=== PATIENT | male | born 1960 | race Caucasian/White ===

== ENCOUNTER 2017-02-18 19:22 | Inpatient (IN) | payer MEDICAID, OTHER ==
[~2017-02-18] VITALS: Ht 177.8 cm; Wt 51.3 kg
[2017-02-18 20:48] LABS: BASO % 0.3 % (0.0-1.0); EOS # 0.1 K/mm3 (0.0-0.50); EOS % 2.2 % (0.0-3.0); LARGE UNSTAINED CELL # 0.1 K/mm3 (0.0-0.4); LYMPH # 1.4 K/mm3 (1.5-4.5); MEAN CORPUSCULAR HEMOGLOBIN 33.8 pg (27.0-33.0); MEAN CORPUSCULAR VOLUME 102.4 fl (80.0-96.0); MONO # 0.4 K/mm3 (0.0-0.8); MONO % 6.5 % (0.0-5.0); NEUTROPHILS # 4.2 K/mm3 (1.8-7.7); PLATELET COUNT, AUTOMATED 128 k/mm3 (150-450); RED CELL DISTRIBUTION WIDTH 14.3 % (11.5-14.5); WHITE BLOOD COUNT 6.1 K/mm3 (4.0-10.0)
[2017-02-18 20:56] LABS: INR 2.04
[2017-02-18 21:14] LABS: ALBUMIN 1.8 GM/DL (3.2-5.2); ALBUMIN/GLOBULIN RATIO 0.38 (1.00-1.93); ALKALINE PHOSPHATASE 128 U/L (45-117); ALT/SGPT 41 U/L (12-78); ANION GAP 7 MEQ/L (8-16); AST/SGOT 137 U/L (15-37); BILIRUBIN,DIRECT 1.7 MG/DL (0.0-0.2); BILIRUBIN,TOTAL 3.2 MG/DL (0.2-1.0); BLOOD UREA NITROGEN 5 MG/DL (7-18); CALCIUM LEVEL 7.6 MG/DL (8.5-10.1); CARBON DIOXIDE LEVEL 36 MEQ/L (21-32); CHLORIDE LEVEL 80 MEQ/L (98-107); CREATININE FOR GFR 0.48 MG/DL (0.70-1.30); GLOMERULAR FILTRATION RATE > 60.0 (>56); GLUCOSE, FASTING 107 MG/DL (70-105); POTASSIUM SERUM 2.8 MEQ/L (3.5-5.1); SODIUM LEVEL 123 MEQ/L (136-145); TOTAL PROTEIN 6.6 GM/DL (6.4-8.2)
[2017-02-18] MEDS ORDERED: ISOVUE-370 76% 100ML VIAL (Q9967) As Ordered ONE (22:15)
[2017-02-18] MEDS ORDERED: KCL 10MEQ IN STERILE WATER 100ML As Ordered ONE (22:28)
[2017-02-18] MEDS ORDERED: POTASSIUM CHLORIDE 10 MEQ SR TABLET PO ONE (22:30)
[2017-02-18] MEDS ORDERED: KCL 10MEQ IN 100ML SWI (KRUN) 10 MEQ in APPROPRIATE DILUENT 1 EA IV ONE ×2 (22:30)
[2017-02-18] MEDS ORDERED: PHYTONADIONE INJection 10 MG in NS 50 ML IV ONE (23:00)
[2017-02-18] MEDS ORDERED: METOCLOPRAMIDE INJ 10MG/2ML VIAL (J2765) IV PRN (23:00)
[2017-02-18] MEDS ORDERED: VITMTA PO (23:10)
[2017-02-18] MEDS ORDERED: OMEP20CA3 PO (23:10)
[2017-02-18] MEDS ORDERED: VITATAB11 PO (23:10)
[2017-02-18] MEDS ORDERED: MAGN500T5 PO (23:10)
[2017-02-18] MEDS ORDERED: CALC600T10 PO (23:10)
[2017-02-18] MEDS ORDERED: FAMO1TAB11 PO (23:10)
[2017-02-18] MEDS: THIAMINE 100 MG TAB PO SCH (23:50)
[2017-02-19] VITALS (8 sets, daily range): BP systolic 92–126; BP diastolic 58–76
--- NOTE | 2017-02-19 01:00 | REPUSA ---
CLINICAL HISTORY: Abdominal pain. TECHNIQUE: Multiple axial, sagittal and coronal CT images were obtained through the abdomen and pelvi s after administration of oral and intravenous contrast material. COMMENTS: The liver is cirrhotic. Multiple hypodense hepatic lesions with the largest measuring 2.6 cm on the r ight side. There is no intra or extrahepatic biliary ductal dilatation. The spleen is normal. The gal lbladder is diffusely thickened. The pancreas is of normal contour and attenuation characteristics. T here is no evidence of adrenal mass. Both kidneys demonstrate prompt and equal nephrograms. The kidneys are normal in size, shape and conf iguration. There is no evidence of renal or ureteral mass. No renal or ureteral calculi are identifie d. There is no hydroureter or hydronephrosis. No evidence for appendicitis. There is diffuse small bowel wall thickening. No evidence for small or large bowel obstruction. There is large ascites. There is no evidence of intrinsic or extrinsic bladder mass. Images of the lung bases show no evidence of pleural or parenchymal mass. Moderate left pleural effus ion. Small right pleural effusion. Passive atelectatic airspace disease of the lower lobes. The bony structures are free of lytic or blastic lesions. Multilevel degenerative changes are seen in volving the thoracolumbar spine. Scattered calcifications are seen involving the aorta and major bran ches compatible with atherosclerosis. Heterogeneous osteopenia of the visualized bones. IMPRESSION: Liver cirrhosis. Multiple hypodense hepatic lesions suggestive of multifocal hepatocellular carcinoma. Thickened gallbladder secondary to parenchymal liver disease. Large ascites. Mesenteric congestion and portal hypertension. Secondary thickening of the small bowel loops. Bilateral pleural effusions large on the left side. Thank you for your kind referral of this patient.
[2017-02-19] MEDS: FUROSEMIDE 20 MG/2 ML VIAL (J1940) IV SCH ×2 (01:49→09:06)
[2017-02-19 05:13] LABS: BASO % 0.3 % (0.0-1.0); EOS # 0.1 K/mm3 (0.0-0.50); EOS % 2.8 % (0.0-3.0); LARGE UNSTAINED CELL # 0.1 K/mm3 (0.0-0.4); LARGE UNSTAINED CELL % 2.5 % (0.0-4.0); LYMPH # 1.3 K/mm3 (1.5-4.5); LYMPH % 24.5 % (24.0-44.0); MEAN CORPUSCULAR HEMOGLOBIN 33.7 pg (27.0-33.0); MEAN CORPUSCULAR VOLUME 102.3 fl (80.0-96.0); MONO # 0.4 K/mm3 (0.0-0.8); NEUTROPHILS # 2.9 K/mm3 (1.8-7.7); PLATELET COUNT, AUTOMATED 122 k/mm3 (150-450); RED CELL DISTRIBUTION WIDTH 14.5 % (11.5-14.5); WHITE BLOOD COUNT 4.7 K/mm3 (4.0-10.0)
--- NOTE | 2017-02-19 05:27 | HPE ---
DATE OF ADMISSION: 02/18/2017 PRIMARY CARE PROVIDER: Burnett Mayito. CHIEF COMPLAINT: Increasing abdominal swelling for the past 2 weeks, abdominal pain and distention for the same duration. PAST MEDICAL HISTORY: 1. Peptic ulcer disease. 2. Alcohol abuse. 3. Tobacco abuse. HISTORY OF PRESENT ILLNESS: This is a 56-year-old male with history of alcohol abuse who last saw a physician in November for a cold, presented to the hospital with 2 weeks' history of abdominal swelling, distention and pain and sensation of bloating. Patient's last drink intake was 2 weeks ago and since then patient has been feeling sick, weak, tired, poor appetite. He felt that he was dehydrated, so he stopped drinking alcohol, but started drinking Gatorade; however, patient did not feel any better with worsening of swelling and so came in to the emergency room today. In the emergency department (ED), patient was found to have gross ascites. Laboratory data was significant for INR of 2, potassium of 2.8, sodium 123, elevated bilirubin of 3.2 with a direct of 1.7. Patient was diagnosed with possible cirrhosis possibly related to alcohol abuse and admitted under the hospitalist service. PAST SURGICAL HISTORY: 1. For peptic ulcer perforation. 2. Left ankle surgery. ALLERGIES: None. HOME MEDICATIONS: - vitamin B complex one tablet daily - calcium 600 mg daily - famotidine 20 mg twice a day - magnesium oxide 500 mg by mouth daily - multivitamins one tablet daily - omeprazole 20 mg daily SOCIAL HISTORY: Patient abuses alcohol; however, has not drank for the past 2 weeks. Patient is a smoker. Smokes about 1/2 pack per day at present, but before used to smoke about 2 packs, but cut down over the past 1 year. No history of recreational drug abuse. FAMILY HISTORY: Nothing significant. REVIEW OF SYSTEMS: All 10-point review of systems is negative except those mentioned in history of present illness (HPI). PHYSICAL EXAMINATION: VITAL SIGNS: Blood pressure 121/88, pulse 96, pulse oximetry 92% in room air, respiratory rate 16, temperature 99.3. GENERAL: Patient awake, alert, oriented times three, cachectic looking, lying down in bed in no acute distress. HEENT: Normocephalic, atraumatic, moist mucous membranes. There is mild icterus in the eyes. CHEST: There are coarse breath sounds present and some crackles at the bases. CARDIOVASCULAR: S1, S2 regular. No rub, murmur or gallop. ABDOMEN: Distended, ascites present, spider angioma present. Bowel sounds are normal. EXTREMITIES: Edema present. LABORATORY DATA: WBC 6.1, hemoglobin 10.8, platelets 128. Sodium 123, potassium 2.8, chloride 80, bicarbonate 36, BUN 5, creatinine 0.4, glucose 107. Serum osmolality 252, lactic acid 1.6, uric acid 3, calcium 7.6, total bilirubin 3.2, direct 1.7, AST 137, ALT 41, alkaline phosphatase 128, ammonia 54, albumin 1.8. INR 2, APTT 58. Alcohol level is negative. CT abdomen, pelvis has been ordered. ASSESSMENT AND PLAN: This is a 56-year-old male admitted for decompensated cirrhosis possibly related to alcohol abuse. 1. Decompensated cirrhosis. Will start the patient on Lasix and aldactone. Will schedule the patient for abdominal paracentesis tomorrow. Patient does not have any signs of encephalopathy at present. 2. Coagulopathy related to decompensated cirrhosis. Will give vitamin K. Will schedule the patient for fresh frozen plasma (FFP) transfusion tomorrow morning before procedure. 3. Alcohol abuse. No signs of withdrawal. Will continue the patient on thiamine and folate. 4. Hyponatremia. Will check urine osmolality and urine sodium. Blood uric acid level is low. Hyponatremia is possibly related to cirrhosis and also excessive free water intake. Will place the patient on fluid restriction. Will continue the patient on Lasix. 5. Hypokalemia. Will replace potassium. 6. Peptic ulcer disease. Will continue with omeprazole. 7. Deep venous thrombosis (DVT) prophylaxis has been ordered.
[2017-02-19 05:32] LABS: INR 2.2
[2017-02-19 05:33] LABS: ALBUMIN 1.5 GM/DL (3.2-5.2); ALBUMIN/GLOBULIN RATIO 0.36 (1.00-1.93); ALKALINE PHOSPHATASE 111 U/L (45-117); ALT/SGPT 40 U/L (12-78); ANION GAP 5 MEQ/L (8-16); AST/SGOT 122 U/L (15-37); BILIRUBIN,TOTAL 3.1 MG/DL (0.2-1.0); BLOOD UREA NITROGEN 4 MG/DL (7-18); CALCIUM LEVEL 7.1 MG/DL (8.5-10.1); CARBON DIOXIDE LEVEL 34 MEQ/L (21-32); CHLORIDE LEVEL 86 MEQ/L (98-107); CREATININE FOR GFR 0.48 MG/DL (0.70-1.30); GLOMERULAR FILTRATION RATE > 60.0 (>56); GLUCOSE, FASTING 116 MG/DL (70-105); SODIUM LEVEL 125 MEQ/L (136-145); TOTAL PROTEIN 5.7 GM/DL (6.4-8.2)
[2017-02-19 05:45] LABS: POTASSIUM SERUM 2.8 MEQ/L (3.5-5.1)
[2017-02-19] MEDS ORDERED: POTASSIUM CHLORIDE 10 MEQ SR TABLET PO ONE (06:00)
[2017-02-19] MEDS ORDERED: POTASSIUM CHLORIDE 10 MEQ SR TABLET PO SCH (09:00)
[2017-02-19] MEDS ORDERED: SPIRONOLACTONE 25 MG TAB PO SCH (09:00)
[2017-02-19] MEDS: FUROSEMIDE 40 MG TAB PO SCH ×2 (09:00→17:36)
[2017-02-19] MEDS: OMEPRAZOLE 20 MG CAP PO SCH (09:06)
[2017-02-19] MEDS: PHYTONADIONE 5 MG TAB PO SCH (09:07)
[2017-02-19] MEDS: THIAMINE 100 MG TAB PO SCH (09:07)
[2017-02-19] MEDS: POTASSIUM CHLORIDE 10 MEQ SR TABLET PO SCH ×2 (09:07→21:58)
[2017-02-19] MEDS: FOLIC ACID 1 MG TAB PO SCH (09:08)
[2017-02-19] MEDS ORDERED: SLF 3 ML SYR IV PRN (11:15)
--- NOTE | 2017-02-19 12:39 | REP ---
MRI ABDOMEN WITHOUT CONTRAST: TECHNIQUE: Coronal T2, axial T1, in-phase, [id number], T2 HASTE. The study is limited due to motion. Post contrast images cannot be obtained due to motion, body habitus and severe ascites. Heterogenous signal is seen in the liver suggesting Fibrofatty infiltration. The spleen is not enlarged. The liver is normal in size. No gross mass is seen but evaluation is limited without contrast. The adrenals, pancreas, and kidneys are grossly unremarkable. A large of abdominal ascites is present. No definite adenopathy is seen. The abdominal aorta is normal in caliber. IMPRESSION: Limited exam. Intravenous contrast could not be administered. Diffuse fibrofatty infiltration of the liver. No gross liver mass, but evaluation of the liver is limited due to the lack IV contrast, body habitus and patient motion. There is a large amount of ascites in the abdomen. Signed by Feroz Bustillo MD 02/19/2017 04:43 P
[2017-02-19 12:47] LABS: SPEC. GRAVITY BODY FLUIDS 1.006 (NOT ESTABLISHED)
[2017-02-19 12:58] LABS: TNC ASCITES FLUID 67 cells/uL (0-20)
[2017-02-19 12:59] LABS: BF DIFF IF INDICATED? YES (NO); RBC ASCITES FLUID < 10 (<10mm3 cells/uL)
[2017-02-19 13:08] LABS: TOTAL PROTEIN, BODY FLUID 0.2 G/DL (NOT ESTABLISHED)
[2017-02-19] MEDS: prednisoLONE (PRELONE) 15MG/5ML SYRUP UDC PO SCH (13:26)
[2017-02-19] MEDS: SLF 3 ML SYR IV SCH ×2 (13:27→21:59)
--- NOTE | 2017-02-19 13:49 | IPNPDOC ---
Text Note Date of Service The patient was seen on 02/19/17. NOTE Subjective: Patient denies nausea/vomiting/abdominal pain. No chest pain/hospice /palpitations. Objective: Vitals: (see below) General: No acute distress, laying comfortably in bed. Cachectic HEENT: Moist mucous membranes. Neck: No JVD or lymphadenopathy Cardiac: RRR, No murmurs Pulm: Clear to auscultation b/l. No wheezing, rhonchi Abd: NT/distended with positive fluid shift. + BS Ext: No edema or cyanosis Labs (see below) Images: MRI Abd 02/19/17 IMPRESSION: Limited exam. Intravenous contrast could not be administered. Diffuse fibrofatty infiltration of the liver. No gross liver mass, but evaluation of the liver is limited due to IV contrast, body habitus and patient motion. There is a large amount of ascites in the abdomen. CT Abd/pelvis 02/19/17 Liver cirrhosis. Multiple hypodense hepatic lesions suggestive of multifocal hepatocellular carcinoma. Thickened gallbladder secondary to parenchymal liver disease. Large ascites. Mesenteric congestion and portal hypertension. Secondary thickening of the small bowel loops. Bilateral pleural effusions large on the left side. Assessment/Plan 1. Decompensated cirrhosis- likely secondary to alcohol alcohol abuse; hepatitis panel pending. Large ascites and status post paracentesis today. Status post 2 units FFP prior to paracentesis, his INR was 2.2. Will need to follow-up cytology. On Lasix and spironolactone. Consider consult and GI on Sunday, when Dr. 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 2. Alcoholic hepatitis- patient had been drinking for 40 years. Last drink was 2 weeks ago when he noticed his abdomen was started to get distended. Hyperbilirubinemia and INR of 2.2. Meld score 20, Maddrey discriminate factor 52 ; started on prednisolone. Counseled on cessation. 3. Hyponatremia- likely secondary to cirrhosis hypervolemia; on spironolactone and Lasix. Nephrology consulted 4. Severe hypokalemia- replaced; 5. History of peptic ulcer disease 6. History of tobacco abuse- counseling cessation 7. Multifocal hepatocellular carcinoma- MRI abdomen was done today however unable to do contrast; I have placed a second MRI abdomen to be done for tomorrow with contrast. AFP sent. Will likely need biopsy after MRI. Discussed with the patient. DVT prophy: SCDs. Very Poor Prognosis. VS,Fishbone, I+O VS, Fishbone, I+O Laboratory Tests 02/18/17 19:50 Red Blood Count 3.20 L, Mean Corpuscular Volume 102.4 H, Mean Corpuscular Hemoglobin 33.8 H, Mean Corpuscular Hemoglobin Concent 33.0, Red Cell Distribution Width 14.3, Neutrophils (%) (Auto) 68.0 H, Lymphocytes (%) (Auto) 21.0 L, Monocytes (%) (Auto) 6.5 H, Eosinophils (%) (Auto) 2.2, Basophils (%) ( Auto) 0.3, Neutrophils # (Auto) 4.2, Lymphocytes # (Auto) 1.4 L, Monocytes # ( Auto) 0.4, Eosinophils # (Auto) 0.1, Basophils # (Auto) 0.0 02/19/17 04:41 Red Blood Count 3.08 L, Mean Corpuscular Volume 102.3 H, Mean Corpuscular Hemoglobin 33.7 H, Mean Corpuscular Hemoglobin Concent 33.0, Red Cell Distribution Width 14.5, Neutrophils (%) (Auto) 62.0, Lymphocytes (%) (Auto) 24.5, Monocytes (%) (Auto) 8.0 H, Eosinophils (%) (Auto) 2.8, Basophils (%) ( Auto) 0.3, Neutrophils # (Auto) 2.9, Lymphocytes # (Auto) 1.3 L, Monocytes # ( Auto) 0.4, Eosinophils # (Auto) 0.1, Basophils # (Auto) 0.0, Calcium Level 7.1 L , Aspartate Amino Transf (AST/SGOT) 122 H, Alanine Aminotransferase (ALT/SGPT) 40, Alkaline Phosphatase 111, Total Bilirubin 3.1 H, Total Protein 5.7 L, Albumin 1.5 L Vital Signs Date Time Temp Pulse Resp B/P Pulse Ox O2 Delivery O2 Flow Rate FiO2 02/19/17 08:00 99.0 104 18 104/72 98 Room Air I&O- Last 24 Hours up to 6 AM 02/19/17 05:59 Intake Total 512 ml Output Total 500 ml Balance 12 ml NADEGE AREROLA MD Feb 19, 2017 13:49
[2017-02-19 14:07] LABS: CC BF DIFF EXAM CYTOCENTRIFUGE
[2017-02-19 14:10] LABS: ANION GAP 7 MEQ/L (8-16); BLOOD UREA NITROGEN 4 MG/DL (7-18); CALCIUM LEVEL 8.1 MG/DL (8.5-10.1); CARBON DIOXIDE LEVEL 33 MEQ/L (21-32); CHLORIDE LEVEL 87 MEQ/L (98-107); CREATININE FOR GFR 0.56 MG/DL (0.70-1.30); GLOMERULAR FILTRATION RATE > 60.0 (>56); GLUCOSE, FASTING 102 MG/DL (70-105); MAGNESIUM LEVEL 1.3 MG/DL (1.8-2.4); POTASSIUM SERUM 3.6 MEQ/L (3.5-5.1); SODIUM LEVEL 127 MEQ/L (136-145)
--- NOTE | 2017-02-19 16:34 | REP ---
ULTRASOUND GUIDED PARACENTESIS: The procedure was performed under the direct supervision of Dr. Bustillo. The risks and benefits of the procedure were explained to the patient and informed consent was obtained. The largest pocket of fluid was localized in the left flank using ultrasound guidance. The skin was prepped and draped in a sterile fashion. 1% Lidocaine was used as a local anesthetic. An 8-Vietnamese [id number] catheter was inserted using trocar technique. 3825 mL of yellow colored fluid was withdrawn with a sample sent to the lab for analysis. The patient tolerated the procedure well and there were no immediate complications. Reviewed by LONNIE Sawyer 02/19/2017 04:44 PEdited and Signed by Feroz Bustillo MD 02/20/2017 04:27 P
[2017-02-19 17:39] LABS: ANION GAP 5 MEQ/L (8-16); BLOOD UREA NITROGEN 4 MG/DL (7-18); CALCIUM LEVEL 7.8 MG/DL (8.5-10.1); CARBON DIOXIDE LEVEL 33 MEQ/L (21-32); CHLORIDE LEVEL 89 MEQ/L (98-107); GLOMERULAR FILTRATION RATE > 60.0 (>56); GLUCOSE, FASTING 181 MG/DL (70-105); POTASSIUM SERUM 3.4 MEQ/L (3.5-5.1); SODIUM LEVEL 127 MEQ/L (136-145)
[2017-02-19] MEDS: MAG SULF 1GM/100ML (MAG RUN) 1 GM in APPROPRIATE DILUENT 1 EA IV SCH ×2 (21:18→22:23)
--- NOTE | 2017-02-19 21:58 | CR ---
NEPHROLOGY CONSULTATION: DATE: 02/19/2017 REFERRING PHYSICIAN: Marshal Mcgill MD CONSULTING PHYSICIAN: Star Fermin MD REASON FOR CONSULTATION: Management of hyponatremia and hypokalemia in a patient with cirrhosis of the liver. CHIEF COMPLAINT: The patient presented to the emergency room last night because of increasing abdominal swelling, abdominal pain and distention for almost two weeks. HISTORY OF PRESENT ILLNESS: Mr. Jatin Holman is a 56-year-old male with a past medical history of alcohol abuse with a baseline normal renal function, not known to have any liver disease in the past. He presented to the emergency room last night because of two week history of progressive abdominal swelling, distention, pain, feeling like he was bloated, decreased appetite, feeling weak, sick and tired. He also reported more than 20 pounds weight loss in the last one month. His family is also present at the bedside. The patient was found to have a sodium of 123 and a potassium of 2.8 on admission in the emergency room. He had a bilirubin of 3.2. Further investigation including CT scan of the abdomen done during admission found that patient had cirrhosis of the liver with possible liver masses. Nephrology service was called for further management of hyponatremia and hypokalemia. PAST MEDICAL HISTORY: The patient has a past medical history of alcohol abuse, history of peptic ulcer disease and peptic ulcer perforation. PAST SURGICAL HISTORY: The patient has history of laparotomy for peptic ulcer perforation in the past. History of left ankle surgery. ALLERGIES: The patient is allergic to IV POTASSIUM CHLORIDE. He reports that he gets burning when he gets the IV KCl. HOME MEDICATIONS: The patient's home medication include: - vitamin B complex - calcium - Pepcid - magnesium oxide - multivitamin - omeprazole INPATIENT MEDICATIONS: Include: - Vitamin K 10 mg IV one dose is given - folic acid 1 mg by mouth daily - Lasix 20 mg IV every 8 hourly - Reglan 10 mg IV 6 hours - omeprazole 20 mg by mouth daily - vitamin K 5 mg by mouth daily - potassium chloride 40 mEq by mouth times one dose was given today morning and then he was placed on KCl 40 mEq by mouth twice a day - prednisolone 40 mg by mouth daily - spironolactone 25 mg by mouth daily, which I changed to 25 mg by mouth twice a day - thiamine 100 mg by mouth daily FAMILY HISTORY: No significant family history of end-stage renal disease or liver disease. SOCIAL HISTORY: The patient lives at home with his family. He has been chronically abusing alcohol. He started drinking when he was 16 years of age. In the past he used to drink about 12 packs of beer in a day. He has cut down now and he is drinking about 2 to 3 cans of beer now. The patient is an active smoker. He smokes about half a pack per day. He reports history of use of marijuana in the past, but last used many days ago. REVIEW OF SYSTEMS: CONSTITUTIONAL: The patient weakness, fatigue. EYES: He denies any blurry vision or double vision. ENT: He denies any dysphagia, odynophagia and ear discharge. CARDIOVASCULAR: The patient denies any chest pain or palpitations. RESPIRATORY: He denies any shortness of breath or wheezing. GASTROINTESTINAL (GI): He reports nausea, decreased appetite, abdominal distention. MUSCULOSKELETAL: The patient denies any muscle aches or pain. CENTRAL NERVOUS SYSTEM: He denies any history of seizures or strokes. PSYCHIATRIC: He denies any history of depression or anxiety. HEMATOLOGIC/ONCOLOGIC: He denies any history of any cancers or anemia. ENDOCRINE: He denies any diabetes, hyperthyroidism or hypothyroidism. SKIN: Any denies any rashes or ulcerations. All other review of systems is negative. PHYSICAL EXAMINATION: GENERAL: The patient is awake, alert and oriented times three. Laying in bed. No apparent distress. VITAL SIGNS: Temperature is 99 degrees Fahrenheit. Blood pressure is 104/72, pulse is 104, respiratory rate of 18, saturating 98% on room air. Intake and output: Urine output recorded so far since overnight is 675 mL. Weight on the bed scale is 63.5 kg. HEAD/NECK: Extraocular muscles intact. The patient is cachetic. He has bilateral temporal wasting. Mucous membranes are moist. Neck is supple. There is no jugular venous distention (JVD). CARDIOVASCULAR: S1, S2, regular rate. No murmur, rub or gallop. RESPIRATORY: Chest is clear to auscultation bilaterally. Bilateral equal air entry. No rales or rhonchi. ABDOMEN: Soft. Distended with positive ascites. The liver is nonpalpable. EXTREMITIES: No clubbing or cyanosis. He has 1+ pitting edema of the bilateral lower extremities. CENTRAL NERVOUS SYSTEM: No focal neurological deficit. Power is 5/5 in all extremities. PSYCHIATRIC: Normal mood and affect. SKIN: No rashes or ulcers. Positive spider angiomas in the upper body. LAB REVIEW: CBC showed a WBC of 4.7, hemoglobin 10.4, platelets are 122. INR is 2.2. Urine osmolarity was 379. Random sodium is 19. Random potassium was 44.9. Ascitic tap was done today which showed a total nucleated cells were 67 and 21% was neutrophils. BMP done today showed sodium 125, potassium 2.8, chloride 86, bicarbonate 34. BUN is 4, creatinine is 0.48. Glucose was 116. Calcium 7.1. Total bilirubin 3.1. Albumin was 1.5. Alcohol level was less than 0.03. Hepatitis B surface antigen is negative. Hepatitis C antibody is negative. Microbiology: Body fluid culture is pending. IMAGING: CT scan of the abdomen and pelvis with oral and IV contrast showed liver cirrhosis, multiple hypodense hepatic lesions suggestive of multiple hepatocellular cancer with enteric congestion and portal hypertension. Bilateral pleural effusions, larger on the left side. ASSESSMENT: 56-year-old male with newly diagnosed liver cirrhosis most likely secondary to chronic alcohol abuse, admitted this time because of multiple electrolyte abnormalities, coagulopathy and possible liver masses. PLAN: 1. Hyponatremia. The patient has hypervolemic hyponatremia in the setting of decompensated liver cirrhosis. I have started the patient on Lasix 40 mg by mouth twice a day. Continue the gentle diuresis at this time. The patient is going to get ascitic tap, which would also help get rid of the extra fluid volume. Continue fluid restriction. 2. Hypokalemia secondary to hyperaldosteronism in the setting of decompensated cirrhosis. The patient is already getting potassium chloride by mouth. Primary team has already placed the patient on spironolactone 25 mg by mouth daily. I have increased the dose to 25. Potassium is expected to improve over the next one or two days. 3. Decompensated cirrhosis and ascites. The patient is going for ascitic tap today. I would give him a dose of albumin 25% 25 gram IV times one dose after ascitic tap to prevent acute kidney injury because of redistribution of the volume. 4. Coagulopathy. It is secondary to decompensated cirrhosis. There is no active bleeding at this time. Continue vitamin K at this time. The patient can get fresh frozen plasma before any surgical procedure. 5. Peptic ulcer disease. Continue the home dose of omeprazole at this time. 6. Alcohol abuse. Continue folic acid and thiamine and continue alcohol withdrawal Clinical [place] Withdrawal Assessment (CIWA) precautions. 7. Possible liver masses. I have ordered AFP tumor marker. The patient is pending an MRI of the abdomen as well. Further recommendations after the MRI results comes back. Thank you for involving us in the care of this patient. We shall be happy to follow the patient along with you tomorrow morning. MTDD
[2017-02-19] MEDS: SPIRONOLACTONE 25 MG TAB PO SCH (21:59)
[2017-02-20 04:52] VITALS: BP 106/62
[2017-02-20 05:03] LABS: BASO % 0.1 % (0.0-1.0); EOS # 0.1 K/mm3 (0.0-0.50); EOS % 1.1 % (0.0-3.0); LARGE UNSTAINED CELL % 0.7 % (0.0-4.0); LYMPH # 1.1 K/mm3 (1.5-4.5); LYMPH % 19.4 % (24.0-44.0); MEAN CORPUSCULAR HEMOGLOBIN 33.6 pg (27.0-33.0); MEAN CORPUSCULAR HGB CONC 33.3 g/dl (32.0-36.5); MEAN CORPUSCULAR VOLUME 100.8 fl (80.0-96.0); MONO # 0.3 K/mm3 (0.0-0.8); MONO % 5.9 % (0.0-5.0); NEUTROPHILS % 72.7 % (36.0-66.0); PLATELET COUNT, AUTOMATED 125 k/mm3 (150-450); RED CELL DISTRIBUTION WIDTH 14.2 % (11.5-14.5); WHITE BLOOD COUNT 5.5 K/mm3 (4.0-10.0)
[2017-02-20 05:10] LABS: INR 1.91
[2017-02-20 05:19] LABS: ALBUMIN 2.1 GM/DL (3.2-5.2); ALBUMIN/GLOBULIN RATIO 0.53 (1.00-1.93); ALKALINE PHOSPHATASE 107 U/L (45-117); ALT/SGPT 35 U/L (12-78); ANION GAP 7 MEQ/L (8-16); AST/SGOT 101 U/L (15-37); BILIRUBIN,TOTAL 2.5 MG/DL (0.2-1.0); BLOOD UREA NITROGEN 5 MG/DL (7-18); CALCIUM LEVEL 7.6 MG/DL (8.5-10.1); CARBON DIOXIDE LEVEL 31 MEQ/L (21-32); CHLORIDE LEVEL 91 MEQ/L (98-107); CREATININE FOR GFR 0.58 MG/DL (0.70-1.30); GLOMERULAR FILTRATION RATE > 60.0 (>56); GLUCOSE, FASTING 141 MG/DL (70-105); MAGNESIUM LEVEL 1.8 MG/DL (1.8-2.4); POTASSIUM SERUM 3.4 MEQ/L (3.5-5.1); SODIUM LEVEL 129 MEQ/L (136-145); TOTAL PROTEIN 6.1 GM/DL (6.4-8.2)
[2017-02-20] MEDS: SLF 3 ML SYR IV SCH ×3 (06:08→22:00)
[2017-02-20 07:50] VITALS: BP 103/60
[2017-02-20] MEDS: POTASSIUM CHLORIDE 10 MEQ SR TABLET PO SCH ×2 (09:00→21:34)
[2017-02-20] MEDS: prednisoLONE (PRELONE) 15MG/5ML SYRUP UDC PO SCH (09:00)
[2017-02-20] MEDS: PHYTONADIONE 5 MG TAB PO SCH (09:00)
[2017-02-20] MEDS: OMEPRAZOLE 20 MG CAP PO SCH (09:01)
[2017-02-20] MEDS: FUROSEMIDE 40 MG TAB PO SCH ×2 (09:01→17:29)
[2017-02-20] MEDS: THIAMINE 100 MG TAB PO SCH (09:01)
[2017-02-20] MEDS: FOLIC ACID 1 MG TAB PO SCH (09:01)
[2017-02-20] MEDS: SPIRONOLACTONE 25 MG TAB PO SCH ×2 (09:01→21:34)
[2017-02-20] MEDS ORDERED: LORazepam 2 MG/ML VIAL (J2060) IV ONE (09:30)
[2017-02-20 11:30] VITALS: BP 101/66
--- NOTE | 2017-02-20 11:45 | REP ---
MRI LIVER WITH CONTRAST: Dynamic MRI liver imaging is performed with T1 fat sat images pre and post administration of 11 mL of gadolinium via power injector. Correlation made with the noncontrast MRI 02/19/2017. No suspicious enhancing lesion is seen in the arterial phase of imaging. There is heterogeneous signal and heterogeneous enhancement without a definite enhancing mass. The findings probably represent diffuse underlying heterogeneous cirrhosis and fibrotic change. No abnormal enhancement is seen in the spleen, adrenals, pancreas or kidneys. IMPRESSION: No suspicious enhancing lesion in the liver. Heterogeneous signal and enhancement most consistent with cirrhosis. Signed by Feroz Bustillo MD 02/20/2017 04:23 P
[2017-02-20 13:00] VITALS: BP 107/60
--- NOTE | 2017-02-20 14:55 | IPN ---
DATE: 02/20/2017 SUBJECTIVE: Patient was seen and examined at the bedside today in the morning. He just came back after getting a second MRI with contrast. Patient's sodium and potassium are improving. Patient got the ascitic tap done yesterday as well. REVIEW OF SYSTEMS: Patient denies any fevers, chills, rigors, headache, nausea, vomiting, chest pain, or shortness of breath. He still reports abdominal distention and decreased appetite. Rest of review of systems is negative. OBJECTIVE: VITAL SIGNS: Temperature is 98.9 degrees Fahrenheit, blood pressure is 103/60, pulse is 107, respiratory rate of 18, saturating 98% on room air. INTAKE AND OUTPUT: Urine output recorded is 875 mL yesterday, 250 mL so far today since overnight. Weight on the bed scale is 62.7 kg. PHYSICAL EXAMINATION: GENERAL: Patient is slightly drowsy after getting an MRI, otherwise he is oriented times three, laying in bed, in no apparent distress. HEAD AND NECK EXAMINATION: Patient has bilateral temporal wasting. He appears cachectic. Mucous membranes are moist. Neck is supple. There is no jugular venous distention (JVD). CARDIOVASCULAR: S1, S2, regular rate. No murmur, rub, or gallop. RESPIRATORY: Chest is clear to auscultation bilaterally. Bilateral equal air entry. No rales or rhonchi. ABDOMEN: Soft, distended with a moderate amount of ascites. Liver is not palpable. EXTREMITIES: No clubbing or cyanosis. Patient has 1+ pitting edema of the bilateral lower extremities. CENTRAL NERVOUS SYSTEM (PADDER CUSHION): No focal neurological deficit. Power is 5/5 in all extremities. PSYCHIATRIC: Normal mood and affect. LABORATORY REVIEW: CBC showed a WBC of 5.5, hemoglobin is 9, platelets are 125. INR is 1.9 today. BMP showed sodium 129, potassium 3.4, chloride 91, bicarbonate is 31, BUN is 5, creatinine is 0.58, calcium is 7.6, magnesium is 1.8, total bilirubin is 2.5, albumin is 2.1. AFP tumor marker is 3.1 which is within the normal range. IMAGING: An MRI of abdomen was done pre- and postcontrast which showed no suspicious enhancing lesions in the liver, hydrogenous signal and enhancement most consistent with cirrhosis of the liver. CURRENT MEDICATIONS: Patient's medications were all reviewed by me. He continues to be on: - Lasix 40 mg by mouth twice a day - spironolactone 25 mg by mouth twice a day - potassium 40 mEq by mouth twice a day as well There is no other change in the medications today as compared with yesterday. ASSESSMENT: A 56-year-old male with newly diagnosed liver cirrhosis, most likely secondary to chronic alcohol abuse, admitted this time because of multiple electrolyte abnormalities, coagulopathy, and questionable liver masses. PLAN: 1. Hyponatremia. Patient has hypervolemic hyponatremia in the setting of decompensated liver cirrhosis. Patient is currently on Lasix 40 mg by mouth twice a day along with spironolactone. Sodium level is expected to improve with diuresis. 2. Hypokalemia. It is secondary to hyperaldosteronism in decompensated liver cirrhosis. I have increased the patient's spironolactone to 25 mg by mouth twice a day. Continue the potassium at this time as well. Potassium level is improving. It is 3.4 at this time. 3. Decompensated liver cirrhosis and ascites. Patient got the ascitic tap done yesterday. He got a dose of albumin with the tap and diuretics have been started which would help decrease the amount of ascites as well. 4. Coagulopathy. Patient is getting vitamin K at this time. No active bleeding at this time. Continue oral vitamin K. 5. Peptic ulcer disease. Continue current dose of omeprazole. 6. Liver masses seen on the CAT scan. Patient got an MRI with contrast done today which ruled out the possibility of liver mass and alpha-fetoprotein is also negative. No need of liver biopsy at this time. The plan of care was discussed with the hospitalist team, Dr. Enriquez.
--- NOTE | 2017-02-20 17:25 | IPN ---
DATE: 02/20/2017 SUBJECTIVE: The patient is seen and examined in the room today. I also had a chance to talk to the patient's and daughter. The patient stated that his abdominal discomfort shows significant improvement after the paracentesis. The patient had a 3.8 liter of fluid drained and the patient tolerated the procedure well. The patient has continued to have intermittent fevers. The patient is quite concerned about the CT findings and there is concern for hepatocellular carcinoma. The patient and family's questions are answered. OBJECTIVE: VITAL SIGNS: Temperature is 98.9, pulse is 107, respirations 18, blood pressure is 103/60, pulse oximetry is 98% on room air. GENERAL: No sign of acute distress. Alert and oriented times three. HEENT: Normocephalic, atraumatic. Extraocular motors are grossly intact. CARDIOVASCULAR: Positive S1, S2. Regular rate. LUNGS: Clear to auscultation. ABDOMEN: Distended. There is some fluctuance. Abdomen is soft. EXTREMITIES: Positive pitting edema. No sign of cyanosis. LABORATORY DATA: WBC is 5.5, hemoglobin 9.0, hematocrit 27, platelet count is 125. Sodium is 129, potassium 3.9, chloride 91, carbon dioxide 31, BUN 4, creatinine 0.58, GFR greater than 60, fasting glucose 141, calcium is 7.6, magnesium 1.8, total bilirubin is 2.5, AST is 101, ALT is 35, alkaline phosphatase 107, total protein 6.1, albumin is 2.1. PT is 22, INR is 1.91. ASSESSMENT AND PLAN: 1. Decompensated liver cirrhosis, most likely secondary to chronic alcohol abuse. Hepatitis B and C lab tests came back negative. The patient had a paracentesis. The patient tolerated the procedure well. 3.8 liters was drained out. was the cytology. The patient is currently on Lasix and spironolactone. 2. Chronic alcohol abuse. The patient has greater than 40 year history of drinking. Last drink was 2 weeks prior to admission. 3. Alcoholic hepatitis. The patient has been receiving steroids. The patient is receiving thiamine and folic acid. 4. 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 The patient is receiving vitamin K. INR is improving. 5. Abnormal CT findings. The patient had a CT of the abdomen done on the day of admission and the report showed multiple hypodense hepatic lesions, which are multifocal, compatible with carcinoma. The patient will have MRI of the abdomen with contrast to confirm the findings. The patient has claustrophobia. The patient will have one dose of Ativan. 6. History of tobacco abuse. 7. Severe hypokalemia. We appreciate nephrology's assistance. This is improving. 8. History of ulcer disease. The patient is on Prilosec. 9. Deep vein thrombosis (DVT) prophylaxis. Currently, the patient had INR drop from 2.2 to 1.9. The patient had thromboembolic compression stockings (TEDS) and sequential compression device (SCD).
[2017-02-20 22:00] VITALS: BP 109/67
[2017-02-21] MEDS: SLF 3 ML SYR IV SCH ×2 (05:04→14:55)
[2017-02-21 06:00] VITALS: BP 112/75
[2017-02-21 06:58] LABS: BASO % 0.1 % (0.0-1.0); EOS # 0.1 K/mm3 (0.0-0.50); LARGE UNSTAINED CELL # 0.1 K/mm3 (0.0-0.4); LARGE UNSTAINED CELL % 1.2 % (0.0-4.0); LYMPH # 1.4 K/mm3 (1.5-4.5); LYMPH % 18.5 % (24.0-44.0); MEAN CORPUSCULAR HEMOGLOBIN 33.8 pg (27.0-33.0); MEAN CORPUSCULAR HGB CONC 32.9 g/dl (32.0-36.5); MEAN CORPUSCULAR VOLUME 102.6 fl (80.0-96.0); MONO # 0.4 K/mm3 (0.0-0.8); NEUTROPHILS # 5.2 K/mm3 (1.8-7.7); NEUTROPHILS % 73.1 % (36.0-66.0); PLATELET COUNT, AUTOMATED 125 k/mm3 (150-450); RED CELL DISTRIBUTION WIDTH 14.4 % (11.5-14.5)
[2017-02-21 07:07] LABS: INR 1.82
[2017-02-21 07:20] LABS: ALBUMIN 1.8 GM/DL (3.2-5.2); ALBUMIN/GLOBULIN RATIO 0.41 (1.00-1.93); ALKALINE PHOSPHATASE 133 U/L (45-117); ALT/SGPT 36 U/L (12-78); ANION GAP 7 MEQ/L (8-16); AST/SGOT 90 U/L (15-37); BILIRUBIN,TOTAL 1.7 MG/DL (0.2-1.0); BLOOD UREA NITROGEN 8 MG/DL (7-18); CALCIUM LEVEL 7.6 MG/DL (8.5-10.1); CARBON DIOXIDE LEVEL 29 MEQ/L (21-32); CHLORIDE LEVEL 94 MEQ/L (98-107); CREATININE FOR GFR 0.52 MG/DL (0.70-1.30); GLOMERULAR FILTRATION RATE > 60.0 (>56); GLUCOSE, FASTING 148 MG/DL (70-105); MAGNESIUM LEVEL 1.5 MG/DL (1.8-2.4); POTASSIUM SERUM 3.9 MEQ/L (3.5-5.1); SODIUM LEVEL 130 MEQ/L (136-145); TOTAL PROTEIN 6.2 GM/DL (6.4-8.2)
[2017-02-21] MEDS: POTASSIUM CHLORIDE 10 MEQ SR TABLET PO SCH (09:23)
[2017-02-21] MEDS: FOLIC ACID 1 MG TAB PO SCH (09:24)
[2017-02-21] MEDS: MAGNESIUM OXIDE 400 MG TAB (MAG-OX) PO SCH ×2 (09:24→20:16)
[2017-02-21] MEDS: PHYTONADIONE 5 MG TAB PO SCH (09:24)
[2017-02-21] MEDS: THIAMINE 100 MG TAB PO SCH (09:24)
[2017-02-21] MEDS: OMEPRAZOLE 20 MG CAP PO SCH (09:24)
[2017-02-21] MEDS: prednisoLONE (PRELONE) 15MG/5ML SYRUP UDC PO SCH (09:25)
[2017-02-21] MEDS: SPIRONOLACTONE 25 MG TAB PO SCH (09:26)
[2017-02-21] MEDS: FUROSEMIDE 40 MG TAB PO SCH ×2 (09:26→17:41)
[2017-02-21] MEDS ORDERED: SPIRONOLACTONE 25 MG TAB PO ONE (09:45)
[2017-02-21] MEDS: LACTULOSE 20 GM/30 ML SYRUP UD PO SCH ×2 (11:44→17:41)
[2017-02-21 14:00] VITALS: BP 113/70
--- NOTE | 2017-02-21 23:24 | IPN ---
DATE: 02/21/2017 SUBJECTIVE: The patient seen and examined in the room with all the family members. The patient is now fully oriented. According to the family member, the patient currently still has some confusion. However, the patient is also able to answer some questions and follow commands. The patient denies any acute complaints. All the family member's questions and the patient's questions answered. OBJECTIVE: VITAL SIGNS: Temperature is 99.6, pulse is 104, respirations 18, blood pressure is 112/75, pulse oximetry is 95% with 2 liters nasal cannula. GENERAL: No sign of acute distress. The patient is alert and awake. The patient knows the date, the place, and person; however, the patient has an issue answering the question properly and all the family members do not feel that the patient is at his baseline. HEENT: Normocephalic, atraumatic. Extraocular muscles grossly intact. CARDIOVASCULAR: Positive S1, S2. Regular rate. LUNGS: Clear to auscultation bilaterally. ABDOMEN: Still distended. There is no fluctuance. Abdomen is soft. EXTREMITIES: Positive pedal edema. No sign of cyanosis. LABORATORY DATA: WBC, hemoglobin 9.4, hematocrit 28.4, platelet count is 125. Sodium 130, potassium 3.9, chloride is 94, carbon dioxide 29, BUN 8, creatinine 0.52. GFR greater than 60. Fasting glucose is 148. Calcium is 7.6. Magnesium is 1.5. Total bilirubin is 1.7, AST 90, ALT 36, alkaline phosphatase is 133. Ammonia level is 107. C-reactive protein is 1.52. Total protein 6.2. Albumin is 1.8. PT is 21.2, INR is 1.82. MR of the abdomen and pelvis with contrast shows no suspicious enhancing lesion in the liver. Heterogeneous signal and enhancement most consistent with cirrhosis. ASSESSMENT AND PLAN: 1. Decompensated liver cirrhosis. On the day of admission, the patient has model for end-stage liver disease (MELD) score of 28. 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 Today, the patient's MELD score is 23. Currently, the patient's mentation is not back to his baseline. The patient's ammonia level actually increased from 54 to 107. Will start Lactulose. I did have a very long discussion with the patient and the patient's , the patient's several daughters and the son with regard to the patient's liver cirrhosis and future of medical management, and patient's mortality. All questions are answered. 2. Abnormal findings from the CT. Initially CT of the abdomen and pelvis was performed. The official reports shows hepatocellular carcinoma; however, the repeated MRI of the abdomen with contrast was done yesterday late in the evening. The results came back negative for any suspicion for liver cancer, and I actually discussed the all the imaging studies with another radiologist, Dr. Quiros, for a second opinion. He also agreed with the MR results that the patient does not have hepatocellular carcinoma. 3. History of chronic alcohol abuse. The patient's last drink was approximately 2-1/2 weeks ago. 3. Alcoholic hepatitis. The patient is on steroids. The patient also has thiamine and folic acid. 4. 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 The patient received vitamin K. INR is improving. INR is decreased from 2.2 to 1.8. 5. History of tobacco abuse. 6. Electrolyte abnormalities. The patient has hyponatremia and severe hypokalemia. Nephrology has been very helpful in assisting in Mr. Holman's care. 7. History of peptic ulcer. The patient is on Prilosec. 8. Deep venous thrombosis (DVT) prophylaxis. The patient is on thromboembolism deterrents (TEDs) and sequential compression devices.
[2017-02-22] MEDS: LACTULOSE 20 GM/30 ML SYRUP UD PO SCH ×2 (00:12→05:44)
--- NOTE | 2017-02-22 02:45 | IPN ---
DATE OF SERVICE: 02/21/2017 SUBJECTIVE: Patient was seen and examined at the bedside today in the morning. He was getting his breakfast. He is much more awake and alert today. His electrolytes continue to improve. Last 24-hour events were noted. MRI report was also evaluated. MRI showed no evidence of tumors in the liver. REVIEW OF SYSTEMS: Patient denies any fevers, chills, rigors, headache, nausea, vomiting, chest pain, shortness of breath, pain abdomen, constipation, or diarrhea. Rest of review of systems is negative. OBJECTIVE: VITAL SIGNS: Temperature is 99.6 degrees Fahrenheit, blood pressure is 112/75, pulse is 104, respiratory rate of 18, saturating 92% on nasal cannula. INTAKE AND OUTPUT: Urine output recorded as 800 mL yesterday, 500 mL so far today since overnight. Weight on the bed scale is 63.7 kg. PHYSICAL EXAMINATION: GENERAL: Patient is awake, alert, oriented times three, lying in bed, in no apparent distress. HEAD AND NECK EXAMINATION: Extraocular muscles intact. Pupils equally round and reactive to light. Mucous membranes are moist. Patient has bilateral temporal wasting. There is no jugular venous distention (JVD). CARDIOVASCULAR: S1, S2, regular rate. No murmur, rub, or gallop. RESPIRATORY: Chest is clear to auscultation bilaterally. Bilateral equal air entry. No rales or rhonchi. ABDOMEN: Soft, distended, moderate amount of ascites. Liver is not palpable. No tenderness. EXTREMITIES: No clubbing or cyanosis. Patient has 1+ edema of the bilateral lower extremities. 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 Power is 5/5 in all extremities. PSYCHIATRIC: Normal mood and affect. LABORATORY REVIEW: CBC showed a WBC of 7, hemoglobin 9.4, platelets are 125. INR is 1.82. BMP showed sodium 130, potassium 3.9, chloride 94, bicarbonate 29, BUN is 8, creatinine is 0.5, magnesium is 1.5, calcium is 7.6, total bilirubin is 1.7, ammonia is 107, albumin is 1.8. Microbiology: AFP for ascitic fluid is negative. Fungal smear is negative so far. CURRENT MEDICATIONS: Patient's medications were all reviewed by me. He continues to be on: - Lasix 40 mg by mouth twice a day - potassium chloride dose has been changed to 40 mEq by mouth daily - spironolactone has been changed to 50 mg by mouth daily - he was also started on lactulose 30 mL every 6 hours IMAGING: MRI of the abdomen done yesterday showed no suspicious enhancing lesions in the liver, heterogenous signal and enhancement most consistent with cirrhosis. ASSESSMENT: 56-year-old male with past medical history of alcohol abuse, recently diagnosed with cirrhosis, admitted this time because of multiple electrolyte abnormalities, coagulopathy. PLAN: 1. Hyponatremia. It is hypervolemic hyponatremia. He has been started on Lasix 40 mg by mouth twice a day. Sodium level continues to improve. 2. Hypokalemia. It is secondary to hyperaldosteronism in decompensated liver cirrhosis. He was started on spironolactone. Dose is 50 mg daily. I have changed the potassium dose to 40 mEq by mouth daily. If patient tolerates, I would slowly increase the spironolactone to a desired level. 3. Decompensated liver cirrhosis and ascites. Patient got the ascitic tap done during this admission. Continue the Lasix and spironolactone to decrease the requirement of ascitic taps. Patient was started on lactulose for high ammonia levels. 4. Coagulopathy. Continue vitamin K. International normalized ratio (INR) continues to decrease. 5. Liver masses seen on CAT scan. Patient got the MRI. MRI has confirmed that there are no suspicious liver lesions. Alpha-fetoprotein is also negative. Results of MRI were already discussed by the primary team with the family. The plan of care was discussed with the hospitalist team, Dr. Enriquez.
[2017-02-22 06:00] VITALS: BP 110/77
[2017-02-22 06:32] LABS: INR 1.85
[2017-02-22 06:34] LABS: BASO % 0.1 % (0.0-1.0); EOS # 0.1 K/mm3 (0.0-0.50); EOS % 1.2 % (0.0-3.0); LARGE UNSTAINED CELL # 0.2 K/mm3 (0.0-0.4); LARGE UNSTAINED CELL % 2.7 % (0.0-4.0); LYMPH # 1.7 K/mm3 (1.5-4.5); LYMPH % 19.9 % (24.0-44.0); MEAN CORPUSCULAR HEMOGLOBIN 33.8 pg (27.0-33.0); MEAN CORPUSCULAR HGB CONC 32.7 g/dl (32.0-36.5); MEAN CORPUSCULAR VOLUME 103.4 fl (80.0-96.0); MONO # 0.5 K/mm3 (0.0-0.8); MONO % 6.5 % (0.0-5.0); NEUTROPHILS # 5.2 K/mm3 (1.8-7.7); NEUTROPHILS % 69.6 % (36.0-66.0); PLATELET COUNT, AUTOMATED 105 k/mm3 (150-450); RED CELL DISTRIBUTION WIDTH 14.3 % (11.5-14.5); WHITE BLOOD COUNT 7.5 K/mm3 (4.0-10.0)
[2017-02-22 06:45] LABS: ALBUMIN 1.9 GM/DL (3.2-5.2); ALBUMIN/GLOBULIN RATIO 0.45 (1.00-1.93); ALKALINE PHOSPHATASE 121 U/L (45-117); ALT/SGPT 37 U/L (12-78); ANION GAP 8 MEQ/L (8-16); AST/SGOT 79 U/L (15-37); BILIRUBIN,TOTAL 1.7 MG/DL (0.2-1.0); BLOOD UREA NITROGEN 9 MG/DL (7-18); CARBON DIOXIDE LEVEL 27 MEQ/L (21-32); CHLORIDE LEVEL 98 MEQ/L (98-107); CREATININE FOR GFR 0.56 MG/DL (0.70-1.30); GLOMERULAR FILTRATION RATE > 60.0 (>56); GLUCOSE, FASTING 102 MG/DL (70-105); MAGNESIUM LEVEL 1.6 MG/DL (1.8-2.4); POTASSIUM SERUM 3.8 MEQ/L (3.5-5.1); SODIUM LEVEL 133 MEQ/L (136-145); TOTAL PROTEIN 6.1 GM/DL (6.4-8.2)
[2017-02-22] MEDS: PHYTONADIONE 5 MG TAB PO SCH (07:57)
[2017-02-22] MEDS: THIAMINE 100 MG TAB PO SCH (07:57)
[2017-02-22] MEDS: OMEPRAZOLE 20 MG CAP PO SCH (07:58)
[2017-02-22] MEDS: MAGNESIUM OXIDE 400 MG TAB (MAG-OX) PO SCH ×2 (07:58→19:59)
[2017-02-22] MEDS: FOLIC ACID 1 MG TAB PO SCH (07:58)
[2017-02-22] MEDS: FUROSEMIDE 40 MG TAB PO SCH ×2 (07:58→17:31)
[2017-02-22] MEDS: prednisoLONE (PRELONE) 15MG/5ML SYRUP UDC PO SCH (07:59)
[2017-02-22] MEDS ORDERED: SPIRONOLACTONE 50 MG TAB PO SCH (09:00)
[2017-02-22] MEDS ORDERED: POTASSIUM CHLORIDE 10 MEQ SR TABLET PO SCH (09:00)
[2017-02-22 14:00] VITALS: BP 120/83
--- NOTE | 2017-02-22 15:17 | IPN ---
DATE: 02/22/2017 SUBJECTIVE: Patient is seen and examined in the room today. Patient feels exhausted from the bowel movement this morning. Unable to stay awake during encounter. Patient noted to have worsening abdominal distention with fluctuance. No overnight events are reported. OBJECTIVE: VITAL SIGNS: Temperature 98.7, pulse 95, respiration rate 17, blood pressure 110/77, pulse oximetry 91% with 2 liters nasal cannula. GENERAL: Fatigued, mild distress secondary to abdominal distention. Patient has difficulty staying awake during encounter. HEENT: Normocephalic, atraumatic. Extraocular motors grossly intact. CARDIOVASCULAR: Positive S1, S2, regular rate. LUNGS: Clear to auscultation bilaterally. ABDOMEN: There is abdominal distention, some fluctuance, abdomen is soft. EXTREMITIES: Positive pedal edema. No sign of cyanosis. LABORATORY DATA: WBC 7.5, hemoglobin 9.9, hematocrit 30.3, platelets 105. Sodium 133, potassium 3.8, chloride 98, carbon dioxide 27, BUN 9, creatinine 0.56, GFR greater than 60, fasting glucose 102, calcium 8, magnesium 1.6, total bilirubin 1.7, AST 79, ALT 37, alkaline phosphatase 121, ammonia level 30, C-reactive protein 1.36, total protein 6.1, albumin 1.9. ASSESSMENT AND PLAN: 1. Decompensated liver cirrhosis. Patient started having recurrence of abdominal distention with fluctuance. Patient will get ultrasound guided needle placement for ascites fluid drainage. Patient has been getting lactulose and ammonia level was brought down from 107 to 30. Due to frequent bowel movements, the dosage of lactulose will be decreased. 2. Abnormal finding from CT. Initial CT of the abdomen and pelvis had a finding suggestive of hepatocellular carcinoma, however repeat MRI of abdomen and pelvis with contrast confirmed there is no finding suggestive of tumor and the MRI was reviewed by two radiologists. 3. History of chronic alcohol abuse. Last drink was approximately a few weeks ago. 4. Alcoholic hepatitis. Patient on steroids. Patient is on thiamine and folic acid. 5. 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 Patient had a dose of vitamin K. INR is improving. 6. History of tobacco abuse. 7. Electrolyte abnormalities, improving. Appreciate nephrology's assistance. 8. History of peptic ulcer disease, on Prilosec. 9. Deep venous thrombosis (DVT) prophylaxis. On thromboembolism deterrents (TEDs) and sequential compression device.
--- NOTE | 2017-02-22 16:47 | REP ---
ULTRASOUND-GUIDED PARACENTESIS: The procedure was performed under the direct supervision of Dr. Bustillo. The risks and benefits of the procedure were explained to the patient and informed consent was obtained. The largest pocket of fluid was localized in the right lower quadrant using ultrasound guidance. The skin was prepped and draped in a sterile fashion. 1% Lidocaine was used as a local anesthetic. An #8-[place] [id number]-kuku-[id number] catheter was inserted using trocar technique. 2800 ml of cloudy yellow fluid was withdrawn and discarded. The patient tolerated the procedure well and there were no immediate complications. Reviewed by LONNIE Sawyer 02/22/2017 05:09 PEdited and Signed by Feroz Bustillo MD 02/23/2017 03:31 P
[2017-02-22 17:32] VITALS: BP 128/85
--- NOTE | 2017-02-22 18:27 | IPN ---
DATE: 02/22/2017 SUBJECTIVE: Patient was seen and examined at the bedside today in the morning. The patient is awake and alert. He is stable. His electrolytes continue to improve. The patient reports that he has been having loose stools with the lactulose that was started yesterday. REVIEW OF SYSTEMS: Patient denies any fevers, chills, rigors, headache, nausea, vomiting, chest pain, shortness of breath. He does report abdominal bloating and distention, decreased appetite and he reports loose stools with Lactulose. He does report lower extremity edema as well. Rest of review of systems is negative. OBJECTIVE: VITAL SIGNS: Temperature is 98.7 degrees Fahrenheit, blood pressure is 110/77, pulse is 95, respiratory rate of 17, saturating 91% on nasal cannula at 2 liters. INTAKE AND OUTPUT: Urine output recorded as 650 mL yesterday, 100 mL so far today since overnight. Weight on the bed scale is 61.6 kg. PHYSICAL EXAMINATION: GENERAL: Patient is awake, alert, oriented times three, lying in bed, in no apparent distress. HEAD AND NECK EXAMINATION: Extraocular muscles intact. Pupils equally round and reactive to light. Mucous membranes are moist. He has bilateral temporal wasting. Neck is supple. There is no jugular venous distention (JVD). CARDIOVASCULAR: S1, S2, regular rate. No murmur, rub, or gallop. RESPIRATORY: Chest is clear to auscultation bilaterally. Bilateral equal air entry. No rales or rhonchi. ABDOMEN: Soft, distended, moderate amount of ascites. Liver or spleen not palpable. No tenderness at this time. EXTREMITIES: No clubbing or cyanosis. Pulses are 2+. He has 1+ edema of the bilateral lower extremities. 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 Power is 5/5 in all extremities. PSYCHIATRIC: Normal mood and affect. LABORATORY REVIEW: Complete blood count (CBC) showed a WBC of 7.5, hemoglobin 9.9, platelets are 105. Basic metabolic panel (BMP) showed sodium 133, potassium 3.8, chloride 98, bicarbonate 27, BUN is 9, creatinine is 0.5, magnesium is 1.6, albumin is 1.9. CURRENT MEDICATIONS: Patient's medications were all reviewed by me and adjusted today. His Lactulose has been stopped. He has been started on Lactulose 15 mL by mouth starting for tomorrow every day. ASSESSMENT: 56-year-old male with past medical history of alcohol abuse, recently diagnosed with cirrhosis, admitted this time because of decompensated cirrhosis and multiple electrolyte abnormalities. PLAN: 1. Hyponatremia. He has hypervolemic hyponatremia, which is improving with Lasix. Continue Lasix 40 mg by mouth twice a day. 2. Hypokalemia. It is secondary to hyperaldosteronism. The patient has been started on potassium, dose was adjusted to 40 mEq daily. He is currently on spironolactone 50 mg daily as well. If needed, spironolactone dose will be slowly adjusted up. 3. Decompensated liver cirrhosis and ascites. Continue the Lasix and spironolactone. The patient can get an ascitic tap every two weeks as needed for now until we adjust his diuretics. He will need albumin 25 gram IV with each hemodialysis session. 4. Coagulopathy. Continue vitamin K. DISCHARGE PLANNING: It is okay to discharge the patient from nephrology standpoint. He can followup with nephrology service two weeks after discharge from the hospital.
[2017-02-22 22:00] VITALS: BP 117/77
[2017-02-23] MEDS ORDERED: FAMOTIDINE 20 MG TAB PO ONE (03:15)
[2017-02-23 06:00] VITALS: BP 118/76
[2017-02-23 06:20] LABS: INR 1.8
[2017-02-23 06:20] LABS: EOS # 0.1 K/mm3 (0.0-0.50); EOS % 0.9 % (0.0-3.0); LARGE UNSTAINED CELL # 0.2 K/mm3 (0.0-0.4); LARGE UNSTAINED CELL % 2.6 % (0.0-4.0); LYMPH # 1.8 K/mm3 (1.5-4.5); LYMPH % 23.9 % (24.0-44.0); MEAN CORPUSCULAR HEMOGLOBIN 33.3 pg (27.0-33.0); MEAN CORPUSCULAR HGB CONC 32.4 g/dl (32.0-36.5); MEAN CORPUSCULAR VOLUME 102.8 fl (80.0-96.0); MONO # 0.6 K/mm3 (0.0-0.8); MONO % 8.6 % (0.0-5.0); NEUTROPHILS # 4.4 K/mm3 (1.8-7.7); PLATELET COUNT, AUTOMATED 126 k/mm3 (150-450); RED CELL DISTRIBUTION WIDTH 14.5 % (11.5-14.5); WHITE BLOOD COUNT 6.9 K/mm3 (4.0-10.0)
[2017-02-23 06:33] LABS: ALBUMIN 1.9 GM/DL (3.2-5.2); ALBUMIN/GLOBULIN RATIO 0.44 (1.00-1.93); ALKALINE PHOSPHATASE 140 U/L (45-117); ALT/SGPT 43 U/L (12-78); ANION GAP 9 MEQ/L (8-16); AST/SGOT 72 U/L (15-37); BILIRUBIN,TOTAL 1.6 MG/DL (0.2-1.0); BLOOD UREA NITROGEN 11 MG/DL (7-18); CALCIUM LEVEL 7.9 MG/DL (8.5-10.1); CARBON DIOXIDE LEVEL 25 MEQ/L (21-32); CHLORIDE LEVEL 101 MEQ/L (98-107); CREATININE FOR GFR 0.57 MG/DL (0.70-1.30); GLOMERULAR FILTRATION RATE > 60.0 (>56); GLUCOSE, FASTING 122 MG/DL (70-105); MAGNESIUM LEVEL 1.6 MG/DL (1.8-2.4); POTASSIUM SERUM 3.9 MEQ/L (3.5-5.1); SODIUM LEVEL 135 MEQ/L (136-145); TOTAL PROTEIN 6.2 GM/DL (6.4-8.2)
[2017-02-23] MEDS ORDERED: SPIRONOLACTONE 50 MG TAB PO SCH (09:00)
[2017-02-23] MEDS ORDERED: FAMOTIDINE 20 MG TAB PO SCH (09:00)
[2017-02-23] MEDS ORDERED: LACTULOSE 20 GM/30 ML SYRUP UD PO SCH (09:00)
[2017-02-23] MEDS: MAGNESIUM OXIDE 400 MG TAB (MAG-OX) PO SCH (09:20)
[2017-02-23] MEDS: FOLIC ACID 1 MG TAB PO SCH (09:20)
[2017-02-23] MEDS: PHYTONADIONE 5 MG TAB PO SCH (09:21)
[2017-02-23] MEDS: OMEPRAZOLE 20 MG CAP PO SCH (09:21)
[2017-02-23] MEDS: THIAMINE 100 MG TAB PO SCH (09:21)
[2017-02-23] MEDS: FUROSEMIDE 40 MG TAB PO SCH (09:21)
[2017-02-23] MEDS: prednisoLONE (PRELONE) 15MG/5ML SYRUP UDC PO SCH (09:27)
[2017-02-23] MEDS ORDERED: THIA100TA PO (11:44)
[2017-02-23] MEDS ORDERED: MAGN500T14 PO (11:44)
[2017-02-23] MEDS ORDERED: ALDA50TA2 PO (11:44)
[2017-02-23] MEDS ORDERED: LACT20EL PO ×2 (11:44→11:48)
[2017-02-23] MEDS ORDERED: PHYT5TA PO (11:44)
[2017-02-23] MEDS ORDERED: FURO40TA2 PO (11:44)
--- NOTE | 2017-02-23 16:44 | IPN ---
DATE: 02/23/2017 SUBJECTIVE: Patient was seen and examined at the bedside today in the morning. He is awake and alert. He was eating his breakfast. Patient reports that he got the ascitic tap done yesterday. 2.8 liters of fluid was removed. Renal function is stable, and electrolytes are getting better as well. Sodium is improved to 135 today. REVIEW OF SYSTEMS: Patient denies any fevers, chills, rigors, headache, nausea, vomiting, chest pain, shortness of breath, pain in abdomen, constipation, or diarrhea. Rest of review of systems is negative. OBJECTIVE: Vital signs: Temperature is 100 degrees Fahrenheit, blood pressure is 118/76, pulse is 97, respiratory rate of 18, saturating 93% on nasal cannula. Intake and output: Urine output recorded is 200 mL yesterday. There is no urine output recorded today. Weight in the bed scale is 51.3 kg. PHYSICAL EXAMINATION: GENERAL: Patient is awake, alert, oriented times three, lying in bed in No apparent distress. He is weak and cachectic. HEAD AND NECK: Extraocular muscles intact. Bilateral temporal wasting. Mucous membranes are moist. Neck is supple. There is no jugular venous distention (JVD). CARDIOVASCULAR: S1, S2, regular rate. No murmur, rub, or gallop. RESPIRATORY: Chest is Clear to auscultation bilaterally. Bilateral equal air entry. No rales or rhonchi. ABDOMEN: Soft, mildly distended. Mild amount of ascites in the flanks. Liver and spleen are not palpable. Bowel sounds are positive. EXTREMITIES: No clubbing or cyanosis. Pulses are 2+. He has trace edema of the bilateral lower extremities. CENTRAL NERVOUS SYSTEM: No focal neurological deficit. Power is 5/5 in all extremities. PSYCHIATRIC: Normal mood and affect. LABORATORY REVIEW: CBC showed a WBC 6.9, hemoglobin 10.5, platelets are 126. BMP showed sodium 135, potassium 3.9, chloride 101, bicarbonate 25, BUN 11, creatinine is 0.5. Ammonia 76. Albumin is 1.9. IMAGING: Paracentesis was done yesterday. 2.8 liters of fluid was removed. CURRENT MEDICATIONS: Patient's medications were all reviewed by me. He continues to be on Lasix 40 mg by mouth twice a day. I stopped the potassium chloride, and I have increased the spironolactone dose to 100 mg by mouth daily. ASSESSMENT: A 56-year-old male with a past medical history of alcohol abuse, recently diagnosed with cirrhosis, admitted this time because of decompensated cirrhosis and multiple electrolyte abnormalities. PLAN: 1. Hyponatremia. It was hypervolemic hyponatremia and is significantly improving. Continue current dose of Lasix. 2. Hypokalemia. I have stopped the potassium chloride now. Continue the spironolactone. I have increased the spironolactone to 100 mg by mouth daily. 3. Decompensated cirrhosis and ascites. Continue Lasix and spironolactone. Continue lactulose 15 mL by mouth daily to prevent hepatic encephalopathy. 4. Coagulopathy. Continue vitamin K. 5. Low-grade temperatures. If the patient spikes temperature again, he will need diagnostic ascitic tap, although the first tap done on 02/19/2017 was negative for spontaneous bacterial peritonitis (SBP). Patient is not on any antibiotics at this time. Patient's electrolytes are getting better now. Nephrology service will sign off at this moment. Patient should followup with nephrology 1-2 weeks after discharge from the hospital. SHADIA
--- NOTE | 2017-02-24 17:23 | DSES ---
DATE OF ADMISSION: 02/18/2017 DATE OF DISCHARGE: 02/23/2017 PRIMARY CARE PROVIDER: [place] Mayito. CONSULTANTS: Artist Agent, Dr. Fermin. PROCEDURES: Paracentesis times two on 02/19/2017, and 02/22/2017. COMPLICATIONS: None. ADMISSION/DISCHARGE DIAGNOSES: 1. Decompensated liver cirrhosis. 2. History of chronic alcohol abuse. 3. Alcoholic hepatitis. 4. 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 5. History of tobacco abuse. 6. Electrolyte abnormalities. 7. Peptic ulcer disease. HOSPITALIZATION COURSE: The patient is 56-year-old male who presented to [facility] on 02/18/2017, for increased abdominal swelling and with distention. CT abdomen was performed. The patient was found to have liver cirrhosis with significant ascites. The patient was started on Lasix and aldactone, and the patient was given vitamin K for his coagulopathy. Ultrasound-guided paracentesis was performed on 02/19/2017. And operations intern consulted for electrolyte abnormalities such as hyponatremia and hypokalemia. In the beginning of hospitalization stay, the patient did have CT abdomen and pelvis which was performed and the findings were in the investigation to rule out multifocal hepatocellular carcinoma. Therefore, repeated MRI of abdomen was attempted on 02/19/2017; however, due to patient's agitation, no useful information was obtained. On 02/20/2017, the patient had a repeat MRI of abdomen and pelvis with contrast after patient received a one-time dose of Ativan. The MRI came back for no suspicious enhancing lesion in the liver, and findings are suggestive of cirrhosis instead of hepatocellular carcinoma. Imaging was reviewed by two radiologists. Later during hospitalization stay, the patient started having altered mental status from elevated ammonia level, and the patient was started on lactulose. On 02/22/2017, the patient had recurrence of abdominal distention. The patient was sent down to radiology for repeated paracentesis. On 02/23/2017, the patient was determined stable for discharge with recommendation to followup with primary care provider within one week. It is recommended that the patient get a gastroenterology (GI)specialist referral from the primary care provider. OBJECTIVE: VITAL SIGNS: Temperature is 100, pulse is 97, respiration 20, blood pressure 118/76, pulse oximetry 93% with one liter nasal cannula. LABORATORY DATA: WBC is 6.9, hemoglobin 10.5, hematocrit 32.2, platelet count is 126. Sodium is 135, potassium 3.9, chloride 101, carbon dioxide 25, BUN 11, creatinine 0.57, GFR greater than 60, fasting glucose 122, calcium 7.9, magnesium 1.6. Total bilirubin is 1.6, AST 72, ALT 43, alkaline phosphatase 140. Ammonia level is 76. C-reactive protein is 0.97. Total protein 6.2, albumin 1.9. MICROBIOLOGY: Ascites fluid culture is negative. IMAGING: CT of the abdomen and pelvis with IV contrast showed liver cirrhosis. Multiple hypodense hepatic lesions suggestive of multifocal hepatocellular carcinoma. Large ascites. Thickened gallbladder secondary to parenchymal liver disease. Mesenteric congestion and portal hypertension. Bilateral pleural effusions, larger on the left side. MRI of the abdomen and pelvis with contrast showed no suspicious enhancing lesion in the liver. Heterogeneous signal and enhancement most consistent with cirrhosis. DISCHARGE MEDICATIONS: - Lasix 40 mg by mouth twice a day - lactulose 30 mL by mouth three times a day - magnesium oxide 500 mg by mouth twice a day - phytonadione 5 mg by mouth daily - spironolactone 100 mg by mouth daily - thiamine 100 mg by mouth daily - vitamin B complex one tablet by mouth daily - calcium 600 mg by mouth daily - famotidine 20 mg by mouth twice a day as needed for heartburn - multivitamin one tablet by mouth daily - omeprazole 20 mg by mouth daily DISCHARGE INSTRUCTIONS: Discontinue lines. Discharge home. Activity as tolerated. Diet as tolerated. The patient shall followup with primary care provider within one week. The patient should establish with a GI specialist for patient's liver cirrhosis. Referral obtained from the primary care provider (PCP). DISCHARGE CONDITION: Fair. DISCHARGE TIME: Greater than 30 minutes.
== END 2017-02-23 14:00 | disposition home or self-care (01) | DRG 264 ==
LOC: EDBD 19:22 → M ED 20:37 → M ED INP 22:57 → M PCU 02-19 00:42 → M MSPAV 02-20 14:53
PROVIDERS: ADMIT Internal Medicine Nephrology; ATTEND Internal Medicine
PROC: 0W9G3ZX Drainage of Peritoneal Cavity, Percutaneous Approach, Diagnostic (ICD-10-PCS; principal; 2017-02-19)
PROC: 30233K1 Transfusion of Nonautologous Frozen Plasma into Peripheral Vein, Percutaneous Approach (ICD-10-PCS; 2017-02-19)
PROC: 30233J1 Transfusion of Nonautologous Serum Albumin into Peripheral Vein, Percutaneous Approach (ICD-10-PCS; 2017-02-19)
PROC: 0W9G3ZZ Drainage of Peritoneal Cavity, Percutaneous Approach (ICD-10-PCS; 2017-02-22)
DX: K70.31 Alcoholic cirrhosis of liver with ascites (principal); D68.4 Acquired coagulation factor deficiency; K70.11 Alcoholic hepatitis with ascites; E87.1 Hypo-osmolality and hyponatremia; E87.6 Hypokalemia; E26.9 Hyperaldosteronism, unspecified; F17.210 Nicotine dependence, cigarettes, uncomplicated; F10.10 Alcohol abuse, uncomplicated; K27.9 Peptic ulcer, site unspecified, unspecified as acute or chronic, without hemorrhage or perforation; Z79.899 Other long term (current) drug therapy

== ENCOUNTER → 2017-03-02 | Outpatient (CLI) | payer OTHER ==
[~2017-03-02] MED LIST: ALDA50TA2 PO; CALC600T10 PO; FAMO1TAB11 PO; FURO40TA2 PO; LACT20EL PO; MAGN500T14 PO; MAGN500T5 PO; OMEP20CA3 PO; PHYT5TA PO; THIA100TA PO; VITATAB11 PO; VITMTA PO
--- NOTE | 2017-03-02 16:07 | REP ---
ULTRASOUND GUIDED PARACENTESIS: The procedure was performed under the direct supervision of Dr. Quiros. The risks and benefits of the procedure were explained to the patient and informed consent was obtained. The largest pocket of fluid was localized in the right flank using ultrasound guidance. The skin was prepped and draped in a sterile fashion. 1% Lidocaine was used as a local anesthetic. Using ultrasound guidance an 8-Gambian kyxnq-[id number]-vdgo catheter was inserted using trocar technique. 2125 mL of clear yellow fluid was withdrawn and discarded. The patient tolerated the procedure well and there were no immediate complications. After the appropriate amount of monitored convalesce the patient was discharged from the department. Reviewed by LONNIE Sawyer 03/02/2017 04:19 PEdited and Signed by David Quiros MD 03/02/2017 04:59 P
== END ==
LOC: M RADPRO 12:29
PROVIDERS: ATTEND Internal Medicine
DX: R18.8 Other ascites (principal); K74.60 Unspecified cirrhosis of liver; I10 Essential (primary) hypertension; M62.81 Muscle weakness (generalized); K27.9 Peptic ulcer, site unspecified, unspecified as acute or chronic, without hemorrhage or perforation; K21.9 Gastro-esophageal reflux disease without esophagitis; K75.9 Inflammatory liver disease, unspecified; Z87.891 Personal history of nicotine dependence; F10.21 Alcohol dependence, in remission; Z88.8 Allergy status to other drugs, medicaments and biological substances; Z79.899 Other long term (current) drug therapy

== ENCOUNTER → 2017-03-08 | Outpatient (CLI) | payer OTHER ==
--- NOTE | 2017-03-09 06:00 | REP ---
ULTRASOUND GUIDED PARACENTESIS: The procedure was performed under the direct supervision of Dr. Bustillo. The risks and benefits of the procedure were explained to the patient and informed consent was obtained. The largest pocket of fluid was localized in the right lower quadrant using ultrasound guidance. The skin was prepped and draped in a sterile fashion. 1% lidocaine was used as a local anesthetic. Using ultrasound guidance, an 8-Ecuadorean multi-side hole catheter was inserted using trocar technique. 1625 mL of yellow fluid was withdrawn and discarded. The patient tolerated the procedure well and there were no immediate complications. After the appropriate amount of monitored convalescence, the patient was discharged from the department. Reviewed by LONNIE Sawyer 03/09/2017 05:33 PEdited and Signed by Feroz Bustillo MD 03/12/2017 05:34 P
== END ==
LOC: M RADPRO 12:07
PROVIDERS: ATTEND Internal Medicine
DX: R18.8 Other ascites (principal); K74.60 Unspecified cirrhosis of liver; Z87.891 Personal history of nicotine dependence; F10.21 Alcohol dependence, in remission; Z88.8 Allergy status to other drugs, medicaments and biological substances; Z79.899 Other long term (current) drug therapy

== ENCOUNTER → 2017-03-15 | Outpatient (CLI) | payer OTHER ==
--- NOTE | 2017-03-15 19:22 | REP ---
LIMITED ABDOMINAL ULTRASOUND: Limited abdominal ultrasound is performed prior to a scheduled paracentesis. Only a very tiny amount of scattered fluid is seen in the abdomen and pelvis. Paracentesis is not performed as the risks outweigh the benefits. Signed by Feroz Bustillo MD 03/16/2017 05:15 P
== END ==
LOC: M RADPRO 11:49
PROVIDERS: ATTEND Internal Medicine
DX: R18.8 Other ascites (principal); K74.60 Unspecified cirrhosis of liver; Z87.891 Personal history of nicotine dependence; F10.21 Alcohol dependence, in remission; Z88.8 Allergy status to other drugs, medicaments and biological substances; Z79.899 Other long term (current) drug therapy

== ENCOUNTER → 2017-03-21 | Outpatient (CLI) | payer OTHER ==
--- NOTE | 2017-03-22 05:18 | REP ---
Clinical: Ascites. Technique: Real time simons scale ultrasound examination using curved array transducer. Findings: Survey ultrasound examination of the four quadrants of the abdomen and pelvis demonstrates small amount of ascites in the right lower quadrant which is insufficient for paracentesis. Pressure: Small amount of ascites in the right lower quadrant insufficient for paracentesis. Signed by Denny Alexander MD 03/22/2017 05:10 A
== END ==
LOC: M RADPRO 10:47
PROVIDERS: ATTEND Internal Medicine
DX: R18.8 Other ascites (principal)

== ENCOUNTER 2024-07-28 22:16 | Emergency (ER) | payer OTHER ==
[~2024-07-28 22:16] MED LIST changes: -CALC600T10 PO; +CALC600T31 PO; +LACT10SO3 PO; -LACT20EL PO; +MEPH5TAB6 PO; +OMEP1CAP73 PO; -OMEP20CA3 PO; -PHYT5TA PO
[2024-07-28 23:01] LABS: BASO % 0.9 % (0.0-1.0); EOS # 0.4 10^3/uL (0.0-0.5); EOS % 7.6 % (0.0-3.0); HEMATOCRIT 36.1 % (42.0-52.0); HEMOGLOBIN 12.7 g/dl (13.5-17.5); LYMPH # 2.1 10^3/uL (1.5-5.0); LYMPH % 45.4 % (24.0-44.0); MEAN CORPUSCULAR HEMOGLOBIN 35.9 pg (27.0-33.0); MEAN CORPUSCULAR HGB CONC 35.2 g/dl (32.0-36.5); MONO # 0.5 10^3/uL (0.0-0.8); MONO % 9.7 % (2.0-8.0); NEUTROPHILS # 1.7 10^3/uL (1.5-8.5); NEUTROPHILS % 36.2 % (36.0-66.0); PLATELET COUNT, AUTOMATED 170 10^3/uL (150-450); RED BLOOD COUNT 3.54 10^6/uL (4.30-6.10); WHITE BLOOD COUNT 4.6 10^3/uL (4.0-10.0)
[2024-07-28 23:24] LABS: INR 1.18; PARTIAL THROMBOPLASTIN TIME 29.9 SECONDS (24.8-34.2); PROTHROMBIN TIME 14.7 SECONDS (12.5-14.5)
[2024-07-28 23:42] LABS: BLOOD UREA NITROGEN < 5 MG/DL (9-23); CALCIUM LEVEL 8.2 MG/DL (8.3-10.6); CARBON DIOXIDE LEVEL 33 MMOL/L (20-31); CHLORIDE LEVEL 95 MMOL/L (98-107); CREATININE FOR GFR 0.52 MG/DL (0.70-1.30); ETHYL ALCOHOL (ETHANOL) 0.403 % (0.000-0.010); GLOMERULAR FILTRATION RATE > 60.0 (>49); GLUCOSE, FASTING 126 MG/DL (74-106); SODIUM LEVEL 133 MMOL/L (136-145)
[2024-07-29] MEDS: LIDOCAINE 1% MDV 20ML VIAL SC ONE (00:20)
[2024-07-29] MEDS: BOOSTRIX VACCINE (TETANUS/DIPHTH/ACEL. PERTUSSIS) 0.5ML SYR IM.IMMUN ONE (01:29)
[2024-07-29 10:54] VITALS: BP 162/87; TEMP 97.6; O2SAT 98
== END 2024-07-29 11:15 | disposition home or self-care (01) ==
LOC: EDBD 22:16 → M ED 22:16
DX: F10.129 Alcohol abuse with intoxication, unspecified (principal); W19.XXXA Unspecified fall, initial encounter; K27.9 Peptic ulcer, site unspecified, unspecified as acute or chronic, without hemorrhage or perforation; Z23 Encounter for immunization; Y92.9 Unspecified place or not applicable; Y93.89 Activity, other specified; Y99.9 Unspecified external cause status; Z79.899 Other long term (current) drug therapy; M19.022 Primary osteoarthritis, left elbow; M85.89 Other specified disorders of bone density and structure, multiple sites; M47.892 Other spondylosis, cervical region; M25.78 Osteophyte, vertebrae